=== PATIENT | female | born 1995 | race Caucasian/White ===

== ENCOUNTER 2021-09-27 05:28 | Inpatient (IN) ==
[~2021-09-27 05:28] MED LIST: *HR* Nalbuphine 10 MG/ML AMPUL IV PRN; Famotidine 20 MG/2 ML VIAL IVP PRN; Lidocaine 1% 20 ML MDV INFILT PRN; Metoclopramide 10 MG/2 ML VIAL IVP PRN; Naloxone 0.4 MG/ML INJ IVP PRN; Ondansetron 4 MG/2 ML VIAL IVP PRN
[2021-09-27] MEDS ORDERED: Ringers Solution, Lactated 1,000 ML IVC SCH (05:30)
[2021-09-27 05:56] LABS: Basophils % 0.4 %; Eosinophils # 0.1 K/mcL (0.0-0.6); Eosinophils % 0.7 %; Hematocrit 33.9 % (35.3-44.9); Hemoglobin 11.2 g/dL (11.5-15.4); Immature Granulocytes % 0.7 % (0-4); Lymphocytes # 1.5 K/mcL (0.6-4.6); Mean Corpuscular Hemoglobin 29.5 pg (28.0-33.3); Mean Corpuscular Volume 89.2 fL (83.0-100.0); Mean Platelet Volume 11.5 fL (9.4-12.4); Monocytes # 0.7 K/mcL (0.0-1.3); Monocytes % 9.2 %; Neutrophils # 5.2 K/mcL (1.6-8.9); Platelet Count 169 K/mcL (140-400); Red Cell Distribution Width 12.2 % (11.5-14.5); White Blood Count 7.5 K/mcL (4.3-11.1)
[2021-09-27 06:29] LABS: Influenza A PCR Negative (Negative); Influenza B PCR Negative (Negative); Resp. Syncytial Virus PCR Negative (Negative)
[2021-09-27 06:33] LABS: SARS-CoV-2 by PCR (In House) Negative (Negative)
[2021-09-27] MEDS ORDERED: *HR* FentaNYL (PF) 100 MCG/2 ML VIAL ONE (07:16)
[2021-09-27] MEDS ORDERED: Ropivacaine/PF 0.2% 20 ML VIAL ONE (07:16)
[2021-09-27] MEDS ORDERED: Epidural Premix (fent/bupiv) 110 ML EP ONE (07:34)
[2021-09-27] MEDS ORDERED: EPHEDrine 50 MG/ML VIAL IVP PRN (07:52)
[2021-09-27] MEDS ORDERED: Epidural Premix (fent/bupiv) 110 ML EP SCH (08:00)
[2021-09-27] MEDS ORDERED: Oxytocin 20 units/ LR 1000 mL 20 UNIT/1,000 ML BAG IVC SCH ×2 (08:45→15:16)
[2021-09-27 13:04] LABS: Amphetamine Screen,Urine Negative ng/mL (Cutoff=1000); Barbiturate Screen,Urine Negative ng/mL (Cutoff=200)
[2021-09-27 13:05] LABS: Benzodiazepines Screen,Urine Negative ng/mL (Cutoff=300); Cannabinoid Screen,Urine Negative ng/mL (Cutoff = 50); Cocaine Screen,Urine Negative ng/mL (Cutoff= 300); Opiate Screen,Urine Negative ng/mL (Cutoff=300); Phencyclidine Screen,Urine Negative ng/mL (Cutoff=25)
[2021-09-27] MEDS ORDERED: Ondansetron ODT 4 MG TAB.RAPDIS SL PRN (15:16)
[2021-09-27] MEDS ORDERED: Lanolin 7 G OINT...G. TP PRN (15:16)
[2021-09-27] MEDS ORDERED: Benzocaine/Menthol 56 GM AEROSOL SPRAY TP PRN (15:16)
[2021-09-27] MEDS: Acetaminophen 325 MG TABLET PO SCH (20:15)
[2021-09-27] MEDS: Ibuprofen 600 MG TABLET PO SCH (20:15)
[2021-09-28] MEDS: Ibuprofen 600 MG TABLET PO SCH (04:10)
[2021-09-28] MEDS: Acetaminophen 325 MG TABLET PO SCH (04:10)
[2021-09-28 04:29] VITALS: TEMP 97.8; O2SAT 98
[2021-09-28 08:01] VITALS: BP 103/53; PULSE 89
[2021-09-28] MEDS ORDERED: Prenatal Vit/FA 1 EACH TABLET PO SCH (09:00)
== END 2021-09-28 15:00 | disposition home or self-care (01) | DRG 560 ==
LOC: 1NENULAB → 1NENUOBS 15:15
PROVIDERS: ADMIT Registered Nurse; ATTEND Registered Nurse